=== PATIENT | female | born 1960 | race Caucasian/White ===

== ENCOUNTER 2016-11-06 08:57 | Emergency (ER) | payer BC, MEDICARE ==
[2016-11-06 09:20] VITALS: BP 88/62
--- NOTE | 2016-11-06 09:49 | UC ---
Complaint Female HPI - HPI Summary HPI Summary: urinary frequency x 4 days + burning on urination, no fever, no chills, no flank pain - History Of Current Complaint Chief Complaint: UCGU Stated Complaint: URINARY COMPLAINT Time Seen by Provider: 11/06/16 09:20 Hx Obtained From: Patient Hx Last Menstrual Period: POST MENOPAUSAL Onset/Duration: Gradual Onset, Lasting Days - 4, Still Present Timing: Constant Severity Initially: Moderate Severity Currently: Moderate Character: Burning Aggravating Factor(s): Nothing Associated Signs And Symptoms: Positive: Back Pain. Negative: Fever, Vaginal Bleeding/Discharge, Vaginal Discharge, Nausea, Vomiting(# Of Episodes =), Genital Swelling, Genital Blisters - Allergies/Home Medications Allergies/Adverse Reactions: Allergies Allergy/AdvReac Type Severity Reaction Status Date / Time Naproxen [From Naprosyn] Allergy Severe Hives Verified 11/06/16 09:12 Home Medications: Home Medications Ferrous Sulfate [Iron (Ferrous Sulfate)] 50 mg PO BID 11/06/16 [History Confirmed 11/06/16] Omeprazole CAP* [Prilosec CAP* 20 MG] 20 mg PO DAILY 11/06/16 [History Confirmed 11/06/16] PMH/Surg Hx/FS Hx/Imm Hx Previously Healthy: Yes - Surgical History Surgical History: Yes Surgery Procedure, Year, and Place: Appendectomy, 1973, [place]. Thoracic Outlet Syndrome - Rib Removed. Tubal Ligation and Reversal. C4-6 Fusion, 2013. Laporascopy. interstem. Rotator cuff repair - Family History Known Family History: Positive: Hypertension, Other - kidney stones - Social History Alcohol Use: Rare Substance Use Type: None Smoking Status (MU): Former Smoker When Did the Patient Quit Smoking/Using Tobacco: 1996 Review of Systems Constitutional: Negative Skin: Negative Eyes: Negative ENT: Negative Respiratory: Negative Genitourinary: Dysuria, Frequency, Urgency All Other Systems Reviewed And Are Negative: Yes Physical Exam Triage Information Reviewed: Yes Appearance: Well-Appearing, No Pain Distress, Well-Nourished Vital Signs: Initial Vital Signs Temp 98 F 11/06/16 09:15 Pulse 58 11/06/16 09:15 Resp 16 11/06/16 09:15 BP 88/62 11/06/16 09:15 Pulse Ox 100 11/06/16 09:15 Vital Signs Reviewed: Yes Eyes: Positive: Conjunctiva Clear ENT: Positive: Normal ENT inspection, Hearing grossly normal, Pharynx normal Neck: Positive: Supple, Nontender, No Lymphadenopathy Respiratory: Positive: Chest non-tender, Lungs clear, Normal breath sounds, No respiratory distress Cardiovascular: Positive: RRR, No Murmur, Pulses Normal Abdomen Description: Positive: Nontender, Soft. Negative: CVA Tenderness (R), CVA Tenderness (L), Distended, Guarding Bowel Sounds: Positive: Present Complaint Female Dx - Differential Dx/Diagnosis Provider Diagnoses: uti Discharge - Discharge Plan Condition: Stable Disposition: HOME Prescriptions: Sulfamethox/Trimethoprim DS* [Bactrim DS 800/160 TAB*] 1 tab PO BID #14 tab Patient Education Materials: Urinary Tract Infection in Women (ED) Referrals: Navid Martínez MD [Primary Care Provider] - 7 Days
== END 2016-11-06 09:52 | disposition home or self-care (01) ==
LOC: UCCORT 08:57
DX: N39.0 Urinary tract infection, site not specified (principal); Z88.6 Allergy status to analgesic agent; Z87.891 Personal history of nicotine dependence
CPT/HCPCS: 81003; 87077; 87086; 87186; 99212; G0463

== ENCOUNTER 2017-06-03 17:08 | Emergency (ER) | payer MEDICARE, BC ==
[2017-06-03 17:32] VITALS: BP 101/72
--- OUTSIDE RECORDS SUMMARY | 2017-06-03 17:35 | XMS REPORT ---
:1960 External Reference #:[id number] Author Organization [facility] Address [address] [place] [address] Phone [phone] Care Team Providers Name Role Phone Navid Martínez MD Care Team Information [place] Sorter Unavailable Navid Martínez MD Primary Care Physician Unavailable Payers Type Date Identification Numbers Payment Provider Subscriber Medicare Primary Policy Number: [id number] Medicare Devi Campbell PayID: [id number] [address] [place] [address] Medigap Part B Policy Number: [id number] [facility] Devi Campbell PayID: [id number] [address] [address] [place] [address] Medigap Part B PayID: [id number] [facility] Devi Campbell [facility] Services [address] [place] [address] Problems Date Description Provider Status Onset: 05/14/2014 Family history of malignant Kathleen Brittany [facility] Active neoplasm of breast Onset: 07/06/2013 Chronic interstitial cystitis JUDY Varela Active Onset: 04/18/2011 Anxiety state Ashley Chaudhry M.D. Active Onset: 05/14/2017 Disorder of bursa of shoulder Cintia Leone MD Active region Onset: 05/14/2017 Disorder of shoulder Cintia Leone MD Active Onset: 08/17/2016 History of polyp of colon Charles Hollingsworth MD Active Onset: 08/17/2016 Flatulence, eructation and gas pain Charles Hollingsworth MD Active Onset: 08/17/2016 Gastroparesis syndrome Charles Hollingsworth MD Active Onset: 08/17/2016 Constipation Charles Hollingsworth MD Active Family History Date Family Member(s) Problem(s) Comments Father Bladder Cancer Father due to Bladder Cancer () - metastasized to esophagus Mother Breast Cancer Mother due to Breast Cancer () Children 6 2 sons, 4 daughters all children are alive and well Siblings 7 2 brothers and 5 sisters 1 sister due to breast cancer 1 sister in remission from uterine cancer 1 brother due to MVA Social History Type Date Description Comments Marital Status Lives With Home Environment Lives Alone Diet Patient follows no dietary restrictions Occupation Disabled nurse Work Status Disabled Hand Dominance Right-handed Cigarette Use Former Cigarette Smoker 3 Packs Daily Smokeless Tobacco Never Used Smokeless Tobacco ETOH Use Denies alcohol use Smoking Patient is a former smoker 1996 Recreational Drug Use Denies Drug Use Daily Caffeine Patient consumes minimal amounts of caffeine Allergies, Adverse Reactions, Alerts Date Description Reaction Status Severity Comments 12/25/2010 Naproxen Hives, okay for Meloxicam active Medications Medication Date Status Form Strength Qnty SIG Indications Ordering Provider Diclofenac 05/13 Active Tablets 75mg 60tab take [address] mills tablet by Daniel mouth twice daily with food Proventil HFA Active Aerosol 108(90Bas 2 puffs e) mcg/ac every 4 hours as needed Lyrica Active Capsules 50mg 90cap 1 by Ashley / lina Chaudhry M.D. bid-tid.. ...refere [facility] #: [id number] Omeprazole Active Capsules 20mg 1 by mouth every day [place] Active Tablets 300mg 1 po bid Dave, Carbonate ER / ER Elo NPP Latuda Active Tablets 40mg TK 1 T PO qd With A Meal Of At Least 350 Calories Topiramate Active Tablets 50mg 1 po bid Dave, Elo, NPP Multi Adult Active Chewtabs 1 a day Unknown Gummies Ultram Active Tablets 50mg Unknown Meloxicam Active Tablets 15mg Niziol, MD Navid Dulcolax 08/17 Hx Tablets 5mg 4tabs 4 tablets Z86.010 Charles Hollingsworth MD /2016 DR taken a 8pm the day before the procedure [facility] Magnesium 08/17 Hx Solution 1.745GM/3 1unit 1 bottle Z86.010 Charles Hollingsworth MD Citrate 0ML s by mouth once Peg 08/17 Hx Solution 240gm 4000m drink /2 Z86.010 Charles Hollingsworth MD 3350/Electrolyte Rec l at night s prior and drink 1/2 in the morning of the procedure Escitalopram 07/09 Hx Tablets 20mg 90tab 1 By Gregory Booth s Mouth Jenaro KUMARI Every Day Lidocaine 05/21 Hx Patches 5% 15uni prn Chaudhry, ts MD Ashley Meloxicam 02/25 Hx Tablets 15mg 90tab Take One Gregory Booth s Tablet By Jenaro KUMARI - Mouth 05/13 Daily Wellbutrin XL Hx Tablets 300mg 1 tab po Unknown /0000 ER 24HR qd Nexium Hx Capsules 20mg 60cap 1 po qd Unknown /0000 DR mills Savella Hx Tablets 50mg 1 tab by Unknown /0000 mouth twice a day Lyrica Hx Capsules 75mg 1 po tid Unknown /0000 Seroquel Hx Tablets 50mg 1 tab by Unknown /0000 mouth - every day 08/17 Advair Diskus Hx Aerosol 250-50mcg 1 puff Unknown /0000 /Dose q12h Celebrex Hx Capsules 200mg 7caps 1 tab by Unknown /0000 mouth every day Detrol Hx Tablets 1mg 1 tab by Unknown /0000 mouth every day Reglan Hx Tablets 10mg 20tab 1 tab by Unknown /0000 s mouth twice a day as needed for nausea Sulfasalazine Hx Tablets 500mg 1 tab by Unknown /0000 DR mouth three times a day Ferrous Sulfate Hx Elixir 220(44Fe) 1 tab by Unknown /0000 mg/5ML mouth every day Toviaz Hx Tablets 8mg 90tab 1 by Deboraferleigh /0000 ER 24HR s mouth Clune, LICENSED GUIDE every day Advair HFA Hx Aerosol 115-21mcg 2 puff Unknown /0000 /Act twice a day Phendimetrazine Hx Tablets 35mg TK 2 TS Unknown Tartrate /0000 PO tid Before Meals Calcium Chews 00/00 Hx 2 po Unknown /0000 daily Immunizations CPT Code Status Date Vaccine Lot # [id number] Given 12/10/2011 flu vaccination 52294 Given 04/18/2011 flu vaccination Vital Signs Date Vital Result Comment 05/14/2017 BP Systolic Sitting Left Arm 98 mmHg BP Diastolic Sitting Left Arm 70 mmHg Heart Rate 71 /min Height 66 inches 5'6" Weight 180.00 lb BMI (Body Mass Index) 29.0 kg/m2 BSA (Body Surface Area) 1.91 m2 [place] body weight in kilograms 59 05/13/2017 BP Systolic Sitting Left Arm 93 mmHg BP Diastolic Sitting Left Arm 66 mmHg Heart Rate 58 /min Height 66 inches 5'6" Weight 180.00 lb BMI (Body Mass Index) 29.0 kg/m2 BSA (Body Surface Area) 1.91 m2 [place] body weight in kilograms 59 08/17/2016 BP Systolic Sitting Left Arm 104 mmHg BP Diastolic Sitting Left Arm 70 mmHg Heart Rate 68 /min Respiratory Rate 16 /min Height 66 inches 5'6" Weight 176.00 lb BMI (Body Mass Index) 28.4 kg/m2 BSA (Body Surface Area) 1.89 m2 [place] body weight in kilograms 59 05/14/2014 BP Systolic 104 mmHg BP Diastolic 68 mmHg Body Temperature 99.0 F Height 66 inches 5'6" Weight 174.00 lb 05/04/2014 BP Systolic 132 mmHg BP Diastolic 72 mmHg Body Temperature 99.3 F Height 66 inches 5'6" Weight 173.00 lb 09/30/2013 BP Systolic 110 mmHg BP Diastolic 80 mmHg Body Temperature 98.3 F Heart Rate 64 /min Height 66 inches 5'6" Weight 177.00 lb 08/10/2013 BP Systolic 122 mmHg BP Diastolic 70 mmHg Height 66 inches 5'6" Weight 181.00 lb 07/09/2013 BP Systolic 110 mmHg BP Diastolic 78 mmHg Heart Rate 68 /min Height 65 inches 5'5" Weight 175.00 lb 06/04/2013 BP Systolic 98 mmHg BP Diastolic 64 mmHg Body Temperature 97.7 F Height 65 inches 5'5" Weight 181.00 lb 05/21/2013 BP Systolic 110 mmHg BP Diastolic 72 mmHg Body Temperature 98.8 F Heart Rate 84 /min Height 66 inches 5'6" Weight 177.00 lb 09/29/2012 BP Systolic 126 mmHg BP Diastolic 74 mmHg Height 66 inches 5'6" Weight 188.00 lb 09/12/2012 BP Systolic 108 mmHg BP Diastolic 70 mmHg Height 66 inches 5'6" Weight 185.00 lb 06/16/2012 BP Systolic 118 mmHg BP Diastolic 68 mmHg Height 66 inches 5'6" Weight 185.00 lb 01/23/2012 BP Systolic 118 mmHg BP Diastolic 74 mmHg Body Temperature 97.8 F Height 66 inches 5'6" Weight 177.00 lb 12/10/2011 BP Systolic 104 mmHg BP Diastolic 62 mmHg Heart Rate 68 /min Height 65 inches 5'5" Weight 175.00 lb 07/03/2011 BP Systolic 104 mmHg BP Diastolic 70 mmHg Height 65 inches 5'5" Weight 174.00 lb 05/23/2011 BP Systolic 96 mmHg BP Diastolic 62 mmHg Heart Rate 64 /min Height 65 inches 5'5" Weight 171.00 lb 05/09/2011 BP Systolic 92 mmHg BP Diastolic 58 mmHg Heart Rate 72 /min Height 65 inches 5'5" Weight 169.00 lb 04/18/2011 BP Systolic 102 mmHg BP Diastolic 76 mmHg Heart Rate 68 /min Height 65 inches 5'5" Weight 170.00 lb 12/25/2010 BP Systolic Sitting Right Arm 90 mmHg BP Diastolic Sitting Right Arm 56 mmHg BP Systolic Sitting Left Arm 92 mmHg BP Diastolic Sitting Left Arm 54 mmHg Heart Rate 64 /min Respiratory Rate 16 /min Height 65 inches 5'5" Weight 166.00 lb BMI (Body Mass Index) 27.6 kg/m2 Results Test Date Test Result H/L Range Note Celiac Disease Comp PNL 08/17/2016 Immunoglobulin A 120 mg/dL 87-352 1 Antigliadin Abs, IgG 2 units 0-19 1, 2 Antigliadin Abs, IgA 4 units 0-19 1, 3 Endomysial IgA Antibody Negative Negative 1 t-Transglutaminase IgA <2 U/mL 0-3 1, 4 t-Transglutaminase IgG <2 U/mL 0-5 1, 5 Vitamin B12 And Folate Serum 08/17/2016 Vitamin B12 349 pg/mL 193-986 1 Folic Acid 16.7 ng/mL 3.1-17.5 1 Laboratory test finding 08/17/2016 BUN 21 mg/dL High 7-18 1 Creatinine 0.9 mg/dL 0.6-1.3 1 Vitamin B12 And Folate 09/03/2015 Vitamin B12 426 pg/mL 193-986 Folic Acid 19.7 ng/mL High 3.1-17.5 Laboratory test finding 09/03/2015 Ferritin 36 ng/mL 8-252 Total Iron Binding Capacity 308 g/dL 250-450 6 Laboratory test finding 11/05/2014 Urine Culture SEE RESULT BELOW 7 Urine Culture And 01/23/2014 Urine Culture (See Note) 8 Sensitivities Laboratory test finding 06/04/2013 Urine Culture See Note 9 Throat-Beta Strept 03/25/2013 Throat Beta Strep (See Note) 10 Culture Urine Culture And 01/29/2013 Urine Culture (See Note) 11 Sensitivities Laboratory test finding 09/29/2012 Surgical Pathology See Note 12 Affirm 09/29/2012 Anahi Negative 13 Gardnerella Negative Trichomonas Negative GC / Chlamydia 09/29/2012 Chlamydia Negative GC Negative 14 Laboratory test finding 09/12/2012 TSH (Thyroid Stimulating 1.13 miu/mL 0.34-5.60 Horm) CBC Auto Diff 09/12/2012 Abs Basophils 0.1 10^3/uL 0-0.2 Abs Eosinophils 0.2 10^3/uL 0-0.6 Abs Lymphocytes 1.4 10^3/uL 1.0-4.8 Abs Monocytes 0.4 10^3/uL 0-0.8 Abs Neutrophils 3.3 10^3/uL 1.5-7.7 Abs Nucleated RBC 0.01 10^3/uL Basophil % 1.1 % 0-2 Eosinophil % 3.3 % 0-6 Granulocyte % 62.0 % 38-83 Hematocrit 35 % 35-47 Hemoglobin 12.4 g/dL 12.0-16.0 Lymphocyte % 26.6 % 25-47 Mean Corpuscular HGB Conc 35 g/dL 31-36 Mean Corpuscular Hemoglobin 33 pg High 27-31 Mean Corpuscular Volume 93 fL 80-97 Mean Platelet Volume 9 um3 7.4-10.4 Monocyte % 7.0 % 1-9 Nucleated Red Blood Cells % 0.1 Platelet Count 198 10^3/uL 150-450 Red Blood Count 3.80 10^6/uL Low 4.0-5.4 Red Cell Distribution Width 13 % 10.5-15 White Blood Count 5.4 10^3/uL 4.8-10.8 Laboratory test finding 09/12/2012 Cytology Pap See Note 15 Comp Metabolic Panel 09/12/2012 Albumin 3.8 g/dL 3.6-5.4 Albumin/Globulin Ratio 1.9 1-3 Alkaline Phosphatase 45 U/L 30-110 Alt 20 U/L 14-54 Anion Gap 6.0 mmol/L 2-11 Ast 19 U/L 12-42 BUN/Creatinine Ratio 18.6 8-20 Blood Urea Nitrogen 13 mg/dL 6-24 Calcium 8.7 mg/dL 8.1-9.9 Chloride 107 mmol/L 101-111 Co2 Carbon Dioxide 26.0 mmol/L 22-32 Creatinine 0.70 mg/dL 0.50-1.40 Egfr 112.6 >60 16 Egfr Non- 87.5 >60 Globulin 2.0 g/dL 2-4 Glucose 109 mg/dL High 70-100 Potassium 3.6 mmol/L 3.5-5.0 Sodium 139 mmol/L 133-145 Total Bilirubin 0.6 mg/dL 0.4-1.5 Total Protein 5.8 g/dL Low 6.2-8.1 Laboratory test finding 12/10/2011 Cytology Pap See Note 17 Lipid Profile (Trig/Chol/HDL) 12/10/2011 Cholesterol 185 mg/dL Less Than 200 18 Cholesterol/HDL Ratio 4.20 AVERAGE 1-4.44 High Density Lipoprotein 44 mg/dL 40-60 19 Low Density Lipoprotein 125 mg/dL High Less Than 100 20 Triglyceride 80 mg/dL 40-200 Basic Metabolic Panel 12/10/2011 Anion Gap 5.0 mmol/L 2-11 21 BUN 15 mg/dL 6-24 BUN/Creatinine Ratio 18.8 8-20 Calcium 8.8 mg/dL 8.1-9.9 Chloride 108 mmol/L 101-111 Co2 (Carbon Dioxide) 28.0 mmol/L 22-32 Creatinine 0.8 mg/dL 0.50-1.40 Glucose 75 mg/dL 70-100 One Over Creatinine 1.25 Potassium 3.5 mmol/L 3.5-5.0 Sodium 141 mmol/L 135-145 eGFR 96.9 > 60 22 eGFR Non- 75.3 > 60 Laboratory test finding 12/10/2011 TSH 1.39 MIU/ML 0.34-5.60 Thyroxine 7.9 g/dL 5-12 Protime 08/03/2011 Inr 0.9 0.9-1.1 23 Protime 12.6 s 12.2-15.2 1 K59.00, R14.0, K59.00 2 Negative 0 - 19 Weak Positive 20 - 30 Moderate to Strong Positive >30 3 Negative 0 - 19 Weak Positive 20 - 30 Moderate to Strong Positive >30 4 Negative 0 - 3 Weak Positive 4 - 10 Positive >10 Tissue Transglutaminase (tTG) has been identified as the endomysial antigen. Studies have demonstr- ated that endomysial IgA antibodies have over 99% specificity for gluten sensitive enteropathy. 5 Negative 0 - 5 Weak Positive 6 - 9 Positive >9 Performed at: - [facility] [address] [id number] Social Services Analyst: Ivana Nicholas MD, Phone: [phone] QUERY: Is Patient Fasting? Y 7 SEE RESULT BELOW Name: SHANNANDEVI : [address]: Judah Ribeiro MD Acct: [id number] Unit: [id number] AGE: 54 Location: [facility] Re11/05/14 SEX: F Status: DEP ER SPEC: [id number] MARCIA: 11/05/14-[address] [facility] [address]: Judah Ribeiro MD REQ: [id number] RECD: 11/05/14-1322 STATUS: [facility] DR: Ashley Chaudhry MD [facility] Physicians _ SOURCE: URINE SPDESC: ORDERED: Urine Culture Procedure Result Verified Site Urine Culture Final 11/07/14- 1052 ML Organism 1 NORMAL DES [place] Count 10-25,000 (Moderate) CFU/ML * ML - MAIN LAB (PSC1) . END OF REPORT * ML=Testing performed at Main Lab DEPARTMENT OF PATHOLOGY, [facility] [employer] [place], [place] [address] Deuce Frank M.D. Director [facility] # [id number] RUN DATE: 01/26/14 [facility] LAB LIVE PAGE 1 RUN TIME: 1013 [facility] [employer] [place], [place] [address] Specimen Inquiry ----- Name: DEVI CAMPBELL : [address]: Samuel Martell MD Acct: [id number] Unit: [id number] AGE: 53 Location: [facility] Re01/23/14 SEX: F Status: DEP ER ----- SPEC: [id number] MARCIA: 01/23/14-[address] [facility] [address]: Samuel Martell MD REQ: [id number] RECD: 01/24/14 STATUS: TAMIKA MCKEON DR: Ashley Chaudhry MD _ SOURCE: URINE SPDESC: ORDERED: Urine Culture ----- Procedure Result Verified Site ----- Urine Culture Final 01/26/14-1013 ML Organism 1 NORMAL DES [place] Count 10-25,000 (Moderate) CFU/ML ----- END OF REPORT * ML=Testing performed at Main Lab DEPARTMENT OF PATHOLOGY, [facility] [employer] [place], [place] [address] Deuce Frank M.D. Director [facility] # [id number] COLONY COUNT ! >100,000 CFU/ml Organism 1 ! ESCHERICHIA COLI QUANTITY ! MANY Organism 2 ! MIXED URETHRAL DES ESCHERICHIA COLI Target Route Dose M.I.C. RX AB COST ------ ----- -------- ------ -- ------ NITROFURANTOIN <= 16 S TRIMETHOPRIM/SULFAMETHOXAZOLE <=20 S AMPICILLIN <=2 S CEFAZOLIN <=4 S AMPICILLIN/SULBACTAM <=2 S CIPROFLOXACIN <=0.25 S PIPERACILLIN/ TAZOBACTAM <=4 S CEFTAZIDIME <=1 S CEFTRIAXONE <=1 S CEFEPIME <=1 S LEVOFLOXACIN <=0.12 S IMIPENEM <=0.25 S GENTAMICIN <=1 S TOBRAMYCIN <=1 S 10 RUN DATE: 03/28/13 [facility] LAB LIVE PAGE 1 RUN TIME: 810 [facility] [employer] [place], [place] [address] Specimen Inquiry ----- Name: DEVI CAMPBELL : [address]: Lashell Garcia MD Acct: [id number] Unit: [id number] AGE: 52 Location: [facility] Re03/25/13 SEX: F Status: DEP ER ----- SPEC: [id number] MARCIA: 03/25/13-[address] [facility] [address]: Lashell Garcia MD REQ: [id number] RECD: 03/26/13-1015 STATUS: TAMIKA MCKEON DR: Ahsley Chaudhry MD _ SOURCE: THROAT SPDESC: ORDERED: Throat Beta Str ----- Procedure Result Verified Site ----- Throat Beta Strep Culture Final 03/28/13-0810 ML Negative For Group A Beta Streptococcus ----- END OF REPORT * ML=Testing performed at Main Lab DEPARTMENT OF PATHOLOGY, [facility] [employer] [place], [place] [address] Deuce Frank M.D. Director [facility] Permit # [id number] RUN DATE: 02/01/13 [facility] LAB LIVE PAGE 1 RUN TIME: 08 [facility] [employer] [place], [place] [address] Specimen Inquiry ----- Name: DEVI CAMPBELL Harry : [address]: Diane Adames MD Acct: [id number] Unit: [id number] AGE: 52 Location: [facility] Re01/29/13 SEX: F Status: DEP ER ----- SPEC: [id number] MARCIA: 01/29/[address] [facility] [address]: Diane Adames MD REQ: [id number] RECD: 01/30/13 STATUS: TAMIKA MCKEON DR: Ashley Chaudhry MD _ SOURCE: URINE [facility]: ORDERED: Urine Culture ----- Procedure Result Verified Site ----- Urine Culture Final 02/01/13-0851 ML Organism 1 NORMAL DES [place] Count >100,000 (Many) CFU/ML ----- END OF REPORT * ML=Testing performed at Main Lab DEPARTMENT OF PATHOLOGY, [address] [place] [address] Deuce Frank M.D. Director [facility] Permit # [id number] [facility] [address] [place] [address], [address] [place] [address] SURGICAL PATHOLOGY REPORT Name: Devi CampbellMaribell Pathology #: [id number] : 1960 (Age: 52) Sex: F Location: [facility] Med. Rec. # Date of Procedure: 09/29/2012 Billing #: [id number] Date Received: 09/29/2012 Physician(s): ASHLEY CHAUDHRY MD Specimen(s) Received: Endometrial biopsy Clinical Information: Postmenopausal bleeding. Gross Description: Specimen received in formalin labeled "endometrial biopsy" is 3.0 cc of irregular fairchild-brown fragments of soft tissue, clotted blood and mucus which is submitted in toto. (1 block). kw /MTM Diagnosis: ENDOMETRIUM, BIOPSY - FRAGMENTS OF BENIGN POLYP AND WEAKLY PROLIFERATIVE ENDOMETRIUM. Reported: 09/30/2012 Electronic Signature cf Navid Santos MD [facility] ICD-9 Codes: 621.0 13 [facility] [address], [address] [place] [address] AFFIRM VAGINOSIS / VAGINITIS REPORT Name: Devi Campbell : 1960 (Age: 52) Sex: F Location: [facility]. Rec. # Date Collected: 09/29/2012 Billing #: [id number] Date Received: 09/29/2012 Physician(s): ASHLEY CHAUDHRY MD Source of Specimen : Vaginal Results: Anahi species DNA Probe NEGATIVE Gardnerella vaginalis DNA Probe NEGATIVE Trichomonas vaginalis DNA Probe NEGATIVE Reported: 09/30/[address] Katarzynaesther Avalos [facility] ICD-9 Codes: A: 616.10 14 [facility] [address], [address] [place] [address] GC / CHLAMYDIA REPORT Name: Radha Campbelldarrel Hull : 1960 (Age: 52) Sex: F Location: [facility]. Rec. # Date Collected: 09/29/2012 Billing #: [id number] Date Received: 09/29/2012 Physician(s): ASHLEY CHAUDHRY MD Source of Specimen: Endocervical swab Results: Neisseria gonorrhoeae NEGATIVE Chlamydia trachomatis NEGATIVE Comment: This analysis was performed using second generation nucleic acid amplification testing (NAAT). Reported: 09/30/2012 Electronic Signature timbo Goldbergice Bailey [facility] ICD-9 Codes: A: V74.5 15 [facility] [address], [address] [place] [address] CYTOLOGY REPORT Name: Devi Campbell Della : 1960 (Age: 52) Sex: F Location: [facility] Med. Rec. # Date Collected: 09/12/2012 Billing #: [id number] Date Received: 2012 Physician(s): LISA CAMACHO NP Source of Specimen: ENDOCERVICAL/ECTOCERVICAL THIN PREP Clinical Information: Date of Last Menstrual Period: None Provided Menstrual History: Irregular Specimen Adequacy: SATISFACTORY FOR EVALUATION. ADEQUATE ENDOCERVICAL/TRANSFORMATION ZONE. General Categorization: NEGATIVE FOR INTRAEPITHELIAL LESION OR MALIGNANCY. tfn Electronic Signature TIMBO Watson (ASCP) Reported: 09/16/2012 [facility] ICD-9 Code(s) V72.31 16 Because ethnic data is not always readily available, this report includes an eGFR for both -Americans and non- Americans. The National Kidney Disease Education Program (NKDEP) does not endorse the use of the MDRD equation for patients that are not between the ages of 18 and 70, are , have extremes of body size, muscle mass, or nutritional status, or are non- or non-. According to the National Kidney Foundation, irrespective of diagnosis, the stage of the disease is based on the level of kidney function: Stage Description GFR(mL/min/1.73 m(2)) 1 Kidney damage with normal or decreased GFR 90 2 Kidney damage with mild decrease in GFR 60- 89 3 Moderate decrease in GFR 30-59 4 Severe decrease in GFR 15-29 5 Kidney failure <15 (or dialysis) 17 [facility] [address] [place] [address], [address] [place] [address] CYTOLOGY REPORT Name: Devi Campbell : 1960 (Age: 51) Sex: F Location: [facility] Med. Rec. # Date Collected: 12/10/2011 Billing #: [id number] Date Received: 2011 Physician(s): ASHLEY CHAUDHRY MD Source of Specimen: ENDOCERVICAL/ ECTOCERVICAL THIN PREP Clinical Information: Date of Last Menstrual Period: 05/14/11 Menstrual History: Irregular Specimen Adequacy: SATISFACTORY FOR EVALUATION. ADEQUATE ENDOCERVICAL/TRANSFORMATION ZONE. ABUNDANT ACUTE INFLAMMATION. General Categorization: NEGATIVE FOR INTRAEPITHELIAL LESION OR MALIGNANCY. mas Electronic Signature Estee Paula, [place] (ASCP) Reported: 12/12/2011 [facility] ICD-9 Code(s) V72.31 18 CHOLESTEROL INTERPRETATION: Desirable: Less than 200 MG/DL Borderline-High Risk: 200-239 MG/DL High-Risk: 240 MG/DL and over 19 HDL INTERPRETATION: Undesirable: High Risk: Less than 40 MG/DL Desirable: Low Risk: Greater than 60 MG/DL 20 LDL INTERPRETATION: Low Risk Optimal Level: LDL Less than 100 MG/DL Near or Above Optimal: LDL 100-129 MG/DL Borderline High Risk: LDL 130-159 MG/DL High Risk : LDL 160-189 MG/DL Very High Risk: LDL Greater than 189 MG/DL 21 Anion gap measurement may be of limited value in the presence of any alkalosis, especially in a combined acid base disorder. . 22 Because ethnic data is not always readily available, this report includes an eGFR for both -Americans and non- Americans. The National Kidney Disease Education Program (NKDEP) does not endorse the use of the MDRD equation for patients that are not between the ages of 18 and 70, are , have extremes of body size, muscle mass, or nutritional status, or are non- or non-. According to the National Kidney Foundation, irrespective of diagnosis, the stage of the disease is based on the level of kidney function: Stage Description GFR(mL/min/1.73 m(2)) 1 Kidney damage with normal or decreased GFR 90 2 Kidney damage with mild decrease in GFR 60- 89 3 Moderate decrease in GFR 30-59 4 Severe decrease in GFR 15-29 5 Kidney failure <15 (or dialysis) 23 THERAPEUTIC INR RANGE: 2.0 - 3.0 DVT, Pulmonary embolus, prophylaxis against venous thrombosis or systemic embolization in high risk patients. 2.5 - 3.5 Mechanical heart valves Procedures Date CPT Code Description Status Comment 05/14/2017 52267 Radiology, Shoulder: Two Views Completed (Sso) 09/06/2016 Colonoscopy Completed Document: 09/06/16 - Operative Report Document: 09/06/16 - Colonoscopy Pictures Document: 09/06/16 - Pathology Final Report 09/06/2016 86284 Colonoscopy With Biopsy Completed 09/01/2015 05862 Psychiatric Diag Eval Completed W/Medical Service 01/18/2015 95472 EKG Interpretation And Report Completed Only 10/05/2013 05829 Mammography Unilateral Completed 09/29/2012 74219 Endometrial Biopsy Completed 09/05/2011 01075 Anesthesia, Extraperitoneal Completed Lower Abdomen Not Otherwise Spec 08/03/2011 77062 EKG Interpretation And Report Completed Only 12/25/2010 78523 EKG-Tracing And Report Completed 12/20/2010 03020 Stress Test Interpre And Completed Report Only 12/20/2010 98656 Stress Test Physician Super Completed Only 12/20/2010 22058 Myocardial Imaging Tomographic Completed Multiple Study At Rest Or Stress 12/19/2010 04624 Echocardiogram Complete Completed 12/19/2010 18326 EKG Interpretation And Report Completed Only 08/31/2009 78928 EKG Interpretation And Report Completed Only 95484 Colonoscopy Completed needed repeat after 1 year, want to go t Encounters Type Date Location Provider CPT E/M Dx Office Visit 05/13/2017 2:00p Orthopaedic Office Zora Kerr, [address] M25.551 [facility] M16.11 M70.61 Office Visit 08/17/2016 2:45[place] [address] K59.00 K31.84 R14.0 Z86.010 Office Visit 01/19/2015 2:18p Cardiology Office Baljit Brown, [address] R07.9 M.DMaribell, [facility] Office Visit 12/25/2010 11:00a Cardiology Office Jose Major [place] [id number] Plan of Care Future Appointment(s):05/24/2017 3:30 pm - Cintia Leone MD at [facility] Kpbnvd2906/03/2017 10:00 am - Cintia Leone MD at [facility] [id number]/18/2017 4 :00 pm - Zora Kerr [facility] at [facility] [id number]/13/2017 - Zora Kerr, [id number] Pain in right hipM16.11 Unilateral primary osteoarthritis, right hipM70.61 Trochanteric bursitis, right hipAllNew Medication:Diclofenac Sodium 75 mgComments:I think the majority of her pain is coming from the hip joint. I suggested giving an injection and another try. I advised her that we scheduled him in the radiology department with use of fluoroscopyto ensure the medication goes into the joint. Given the fact that her arthritis does not appear to be severe think she should have good results with an injection and/or medication. She was agreeable to this and it will be scheduled with Dr. Waggoner. In addition, I suggested she stop the Meloxicam as it really is not helping her. I have faxed in diclofenac 75 mg to be taken twice a day with food. She can also apply ice to the hip as needed. I will reevaluate her one month after the injection has been given. She will contact the office sooner with any problems or concerns.
--- NOTE | 2017-06-03 18:07 | UC ---
Complaint Female HPI - HPI Summary HPI Summary: 57 y/o female presents to the urgent care c/o frequency and burning on urination , mil incontinence and strong urine smell since 06/01/2017. Pt thinks she has a UTI. She states she has had 3 UTI since 10/2016. Pt states she has Hx of RT hip arthritis and she gets pain inj once a month. Last Saturday she had on and the next day she developed mild Urinary incontinence. Pt denies fever, back pain , abdominal pain, SOB, chest pain, N/V/D. - History Of Current Complaint Hx Obtained From: Patient Hx Last Menstrual Period: POST MENOPAUSAL Onset/Duration: Gradual Onset, Lasting Days - 3 days, Still Present, Worse Since - yesterday Timing: Intermittent Severity Initially: Mild Severity Currently: Mild Pain Intensity: 3 Pain Scale Used: 0-10 Numeric Character: Burning Aggravating Factor(s): Urination Associated Signs And Symptoms: Positive: Negative. Negative: Fever, Back Pain, Vaginal Discharge, Nausea - Risk Factors Ectopic Risk Factor: Negative Ovarian Torsion Risk Factor: Negative <Barby Gutiérrez - Last Filed: 06/03/17 18:50> <Alaina Wong - Last Filed: 06/03/17 19:14> - History Of Current Complaint Chief Complaint: UCGU Stated Complaint: URINARY COMPLAINT Time Seen by Provider: 06/03/17 18:05 - Allergies/Home Medications Allergies/Adverse Reactions: Allergies Allergy/AdvReac Type Severity Reaction Status Date / Time naproxen [From Naprosyn] Allergy Hives Verified 06/03/17 17:32 Home Medications: Home Medications Diclofenac Sodium 50 mg PO 06/03/17 [History] Docusate Sodium [Colace] 100 mg PO 06/03/17 [History] PMH/Surg Hx/FS Hx/Imm Hx Previously Healthy: Yes Other Endocrine History: Anemia Other GI/ History: kidney infections and recurrent UTI, constipation Other Neurological History: Hip arthritis Psychological History: Anxiety, Depression, Bipolar Disorder - Surgical History Surgical History: Yes Surgery Procedure, Year, and Place: Appendectomy, 1972, [place]. Thoracic Outlet Syndrome - Rib Removed. Tubal Ligation and Reversal. C4-6 Fusion, 2012. Laporascopy. interstem. Rotator cuff repair - Family History Known Family History: Positive: Hypertension, Other - kidney stones - Social History Alcohol Use: Rare Substance Use Type: None Smoking Status (MU): Former Smoker When Did the Patient Quit Smoking/Using Tobacco: 1996 <Barby Gutiérrez - Last Filed: 06/03/17 18:50> Review of Systems Constitutional: Negative Skin: Negative Eyes: Negative ENT: Negative Respiratory: Negative Cardiovascular: Negative Gastrointestinal: Negative Genitourinary: Dysuria, Frequency, Urgency, Other - incontinence Motor: Negative Neurovascular: Negative Musculoskeletal: Negative Neurological: Negative Psychological: Negative Is Patient Immunocompromised?: No All Other Systems Reviewed And Are Negative: Yes <Barby Gutiérrez - Last Filed: 06/03/17 18:50> Physical Exam - Summary Physical Exam Summary: VITAL SIGNS: Reviewed. GENERAL: Patient is a well developed and nourished female who is sitting comfortable in the examining table. Patient is not in any acute respiratory distress. HEAD AND FACE: No signs of trauma. No ecchymosis, hematomas or skull depressions. No sinus tenderness. EYES: PERRLA, EOMI x 2, No injected conjunctiva, clear watery eyes, no nystagmus. No photophobia. EARS: Hearing grossly intact. Ear canals and tympanic membranes are within normal limits. MOUTH: pharynx with no erythema, no exudates,no palatal petechiae. no B/L tonsillar enlargement Uvula in midline. NECK: Supple, trachea is midline, no lymphadenopathy, no JVD, no carotid bruit, no c-spine tenderness, neck with full ROM. CHEST: Symmetric, no tenderness at palpation LUNGS: Clear to auscultation bilaterally. No wheezing or crackles. CVS: Regular rate and rhythm, S1 and S2 present, no murmurs or gallops appreciated. ABDOMEN: Soft, non-tender. No signs of distention. No rebound no guarding, and no masses palpated. Bowel sounds are normal. BACK:no scoliosis or lesions, non tender to palpation, No B/L CVA tenderness EXTREMITIES: FROM in all major joints, no edema, no cyanosis or clubbing. NEURO: Alert and oriented x 3. No acute neurological deficits. Speech is normal and follows commands. SKIN: Dry and warm Triage Information Reviewed: Yes Vital Signs: Initial Vital Signs Temp 98.5 F 06/03/17 17:27 Pulse 74 06/03/17 17:27 Resp 18 06/03/17 17:27 BP 101/72 06/03/17 17:27 Pulse Ox 100 06/03/17 17:27 <Barby Gutiérrez - Last Filed: 06/03/17 18:50> Vital Signs: Initial Vital Signs Temp 98.5 F 06/03/17 17:27 Pulse 74 06/03/17 17:27 Resp 18 06/03/17 17:27 BP 101/72 06/03/17 17:27 Pulse Ox 100 06/03/17 17:27 <Alaina Wong - Last Filed: 06/03/17 19:14> Complaint Female Dx - Course Course Of Treatment: 57 y/o female presents to the urgent care c/o frequency and burning on urination, mil incontinence and strong urine smell since 2017. Pt thinks she has a UTI. She states she has had 3 UTI since 10/2016. Pt states she has Hx of RT hip arthritis and she gets pain inj once a month. Last Saturday she had on and the next day she developed mild Urinary incontinence. Pt denies fever, back pain , abdominal pain, SOB, chest pain, N/V/D.Hx obtained. PE :WNL. UA results: Nitrates +, trace+, Leukoesterase 1+. Pt Rx Bactrim PO x 7 days. Pyridium 100mg PO TID x 2 days. Advised to increase fluid intake. Urine sent for culture if any abnormality Pt will be notified for further treatment. Pt advised If symptoms do not improve to return to the urgent care or f/u with PCP. Pt understood and agreed. Left the clinic ambulating. - Differential Dx/Diagnosis Differential Diagnosis/HQI/PQRI: Cervicitis, Renal Colic, Ureteral Stone, Urinary Tract Infection Provider Diagnoses: 1- Urinary tract infection. 2-Dysuria <Barby Gutiérrez - Last Filed: 06/03/17 18:50> Discharge <Barby Gutiérrez - Last Filed: 06/03/17 18:50> <Alaina Wong - Last Filed: 06/03/17 19:14> - Discharge Plan Condition: Stable Disposition: HOME Prescriptions: Phenazopyridine TAB* [Pyridium 100 mg TAB*] 100 mg PO TID #6 tab Sulfamethox/Trimethoprim DS* [Bactrim DS 800/160 TAB*] 1 tab PO BID #14 tab Patient Education Materials: Urinary Tract Infection in Women (ED) Referrals: Navid Martínez MD [Primary Care Provider] - 3 Days Additional Instructions: 1- Please take Bactrim PO x 7 days. Pyridium 100 mg PO TID x 2 days to alleviate urinary symptoms. Increase increase fluid intake. drink cranberry juice. 2-Urine sent for culture if any abnormality, you will be notified for further treatment. 3-Please f/u with PCP for further evaluation on your recurrent UTI's Attestation Statement User Type: Provider - I was available for consult. This patient was seen by the [facility]. The patient was not presented to, seen by, or examined by me. Jannette <Alaina Wong - Last Filed: 06/03/17 19:14>
== END 2017-06-03 18:30 | disposition home or self-care (01) ==
LOC: UCCORT 17:08
DX: N39.0 Urinary tract infection, site not specified (principal); B96.20 Unspecified Escherichia coli [E. coli] as the cause of diseases classified elsewhere; R30.0 Dysuria; Z87.440 Personal history of urinary (tract) infections; Z88.8 Allergy status to other drugs, medicaments and biological substances; K59.00 Constipation, unspecified; Z87.891 Personal history of nicotine dependence
CPT/HCPCS: 81003; 87077; 87086; 87186; 99212; G0463